=== PATIENT | male | born 1980 | race Asian ===

== ENCOUNTER 2020-07-30 09:52 | Outpatient (REF) | payer OTHER, SELFPAY ==
[2020-07-30 10:16] LABS: MANUAL DIFF FLAG NO
[2020-07-30 10:32] LABS: Basophils Percent Auto 0.4 % (0-2); Eosinophils Absolute Auto 0.2 X10*3/uL (0.0-0.4); Eosinophils Percent Auto 2.2 % (0-4); Hematocrit 42.3 % (42-52); Hemoglobin 12.7 g/dl (14.0-18.0); Imm Gran Abs Auto 0.03 X10*3/uL (0.00-0.03); Imm Gran Pct Auto 0.4 % (0.0-0.4); Lymphocytes Absolute Auto 3.6 X10*3/uL (1.2-4.9); Lymphocytes Percent Auto 52.2 % (20-40); Mean Corpuscular Hemoglobin 19.9 pg (27.0-33.0); Mean Corpuscular Volume 66.2 fL (80-98); Mean Platelet Volume 8.8 fL (9.4-12.4); Monocytes Absolute Auto 0.6 X10*3/uL (0.1-1.2); Monocytes Percent Auto 8.2 % (2-11); Neutrophils Absolute Auto 2.5 X10*3/uL (2.0-8.3); Neutrophils Percent Auto 36.6 % (45-73); Platelet Count 291 X10*3/uL (160-400); Red Blood Count 6.39 X10*6/uL (4.60-5.80); Red Cell Distribution Width 16.6 % (11.0-16.0); White Blood Count 6.8 X10*3/uL (4.8-10.8)
[2020-07-30 10:45] LABS: Alanine Aminotransferase 28 U/L (0-40); Albumin Level 4.8 g/dL (3.5-5.0); Alkaline Phosphatase 58 U/L (39-117); Anion Gap 12 (12-20); Aspartate Amino Transferase 20 U/L (5-37); Bilirubin Total 0.5 mg/dL (0.0-1.0); Blood Urea Nitrogen 14 mg/dL (9-16); Calcium 9.2 mg/dL (8.4-10.2); Carbon Dioxide 29 mmol/L (22-29); Chloride 104 mmol/L (96-108); Cholesterol 210 mg/dL; Estimated Glomerular Filt Rate > 60; Glucose Fasting 91 mg/dL (60-99); HDL Cholesterol 35 mg/dL; LDL Cholesterol Calculated 125 mg/dl; Potassium 4.8 mmol/l (3.3-5.1); Sodium 140 mmol/L (135-145); Triglycerides 253 mg/dL
== END 2020-07-30 09:53 | disposition home or self-care (01) ==
LOC: HO.LAB 09:52
PROVIDERS: PCP Internal Medicine Medical Oncology; Visit Provider Internal Medicine Medical Oncology
DX: K21.9 Gastro-esophageal reflux disease without esophagitis (principal); E78.2 Mixed hyperlipidemia; E66.9 Obesity, unspecified; D56.3 Thalassemia minor
CPT/HCPCS: 36415; 80053; 80061; 84443; 85025

== ENCOUNTER 2021-04-15 09:16 | Outpatient (REF) | payer OTHER, SELFPAY ==
[2021-04-15 09:36] LABS: MANUAL DIFF FLAG NO
[2021-04-15 09:41] LABS: Basophils Percent Auto 0.5 % (0-2); Eosinophils Absolute Auto 0.2 X10*3/uL (0.0-0.4); Eosinophils Percent Auto 3.5 % (0-4); Hematocrit 39.3 % (42-52); Hemoglobin 11.8 g/dl (14.0-18.0); Imm Gran Abs Auto 0.02 X10*3/uL (0.00-0.03); Imm Gran Pct Auto 0.3 % (0.0-0.4); Lymphocytes Absolute Auto 3.5 X10*3/uL (1.2-4.9); Lymphocytes Percent Auto 53.1 % (20-40); Mean Corpuscular Hemoglobin 19.8 pg (27.0-33.0); Mean Corpuscular Volume 66.1 fL (80-98); Mean Platelet Volume 9.1 fL (9.4-12.4); Monocytes Absolute Auto 0.5 X10*3/uL (0.1-1.2); Monocytes Percent Auto 7.8 % (2-11); Neutrophils Absolute Auto 2.3 X10*3/uL (2.0-8.3); Neutrophils Percent Auto 34.8 % (45-73); Platelet Count 281 X10*3/uL (160-400); Red Blood Count 5.95 X10*6/uL (4.60-5.80); Red Cell Distribution Width 16.1 % (11.0-16.0); White Blood Count 6.5 X10*3/uL (4.8-10.8)
[2021-04-15 10:03] LABS: Alanine Aminotransferase 20 U/L (0-40); Albumin Level 4.6 g/dL (3.5-5.0); Alkaline Phosphatase 58 U/L (39-117); Anion Gap 11 (12-20); Aspartate Amino Transferase 16 U/L (5-37); Bilirubin Total 0.4 mg/dL (0.0-1.0); Blood Urea Nitrogen 12 mg/dL (9-16); Calcium 9.3 mg/dL (8.4-10.2); Carbon Dioxide 25 mmol/L (22-29); Chloride 109 mmol/L (96-108); Cholesterol 193 mg/dL; Estimated Glomerular Filt Rate > 60; Glucose Fasting 97 mg/dL (60-99); HDL Cholesterol 31 mg/dL; LDL Cholesterol Calculated 118 mg/dl; Potassium 4.4 mmol/L (3.3-5.1); Sodium 141 mmol/L (135-145); Total Protein 7.6 g/dL (6.5-8.0); Triglycerides 220 mg/dL
[2021-04-15 10:24] LABS: Thyroid Stimulating Hormone 1.03 uIU/mL (0.32-4.0)
== END 2021-04-15 09:17 | disposition home or self-care (01) ==
LOC: HO.LAB 09:16
PROVIDERS: PCP Internal Medicine Medical Oncology; Visit Provider Internal Medicine Medical Oncology
DX: K21.9 Gastro-esophageal reflux disease without esophagitis (principal); E78.2 Mixed hyperlipidemia; E66.9 Obesity, unspecified; D56.3 Thalassemia minor
CPT/HCPCS: 36415; 80053; 80061; 84443; 85025

== ENCOUNTER 2022-02-04 20:48 | Emergency (ER) | payer OTHER, SELFPAY ==
--- NOTE | ~2022-02-04 | US_ITS ---
EXAMINATION: US SCROTUM CLINICAL INFORMATION: Right testicular pain, evaluate for epididymitis/varicocele. COMPARISON: None TECHNIQUE: A sonogram of the scrotum was performed assessing oh-scale appearance and color Doppler flow. Spectral Doppler analysis of the arterial and venous flow were performed in the testes bilaterally. FINDINGS: RIGHT: Right testicle measures 4.9 x 2.8 x 2.7 cm, volume 19 mL. Microlithiasis. No other focal testicular parenchymal lesions are visualized. Spectral Doppler analysis of the arterial and venous flow is normal in the right testis. Right epididymal head is normal in size. There are simple subcentimeter epididymal head cysts, largest measuring up to 0.3 cm in size. No right hydrocele or varicocele is seen. Right epididymal Doppler flow is normal. LEFT: Left testicle measures 4.7 x 2.2 x 3.3 cm, volume 18 mL. Microlithiasis. No other focal testicular parenchymal lesions are visualized. Spectral Doppler analysis of the arterial and venous flow is normal in the left testis. Left epididymal head is normal in size. No left hydrocele or varicocele is seen. Left epididymal Doppler flow is US/US scrotum IMPRESSION: Bilateral microlithiasis, recommend surveillance following clinical guidelines. No sonographic evidence of acute epididymitis. No evidence of testicular torsion at the moment of this examination. Simple appearing subcentimeter right-sided epididymal head cysts.
[2022-02-04 21:18] VITALS: BP 119/78; PULSE 80; RESP 18; TEMP 37.2; O2SAT 99; BMI 28.9
--- NOTE | 2022-02-04 22:57 | ED_ITS ---
HPI - Male Genitourinary General Chief complaint: Abdominal Pain Stated complaint: right sided pain Time Seen by Provider: 02/04/22 22:07 Source: patient Mode of arrival: ambulatory Limitations: no limitations History of Present Illness HPI Narrative: Patient complaining of right groin right testicle pain for last 10 days after lifting a couch pain gets worse on standing no lump or swelling. No nausea vomiting no penile discharge no UTI symptoms Related Data Allergies Allergy/AdvReac Type Severity Reaction Status Date / Time No Known Allergies Allergy Unverified 05/05/20 17:44 Review of Systems Review of Systems: Yes all other systems are reviewed and are negative [facility] Social History Social History Advance Directives: No Advance Directives Information Provided: Yes Physical Exam Vital Signs: Vital Signs: Last Vital Signs Temp 98.7 F 02/04/22 23:46 Pulse 75 02/04/22 23:46 Resp 18 02/04/22 23:46 BP 122/76 02/04/22 23:46 Pulse Ox 98 02/04/22 23:46 O2 Del Method 02/04/22 23:46 BMI result Body Mass Index 28.9 Appearance: Alert. Oriented X3. No acute distress. Neck: Normal inspection. Neck supple. CVS: Normal heart rate and rhythm. Pulses normal. Respiratory: No respiratory distress. Equal air entry bilateral, Abdomen: Soft and nontender. Bowel sounds are present, no mass palpable, no CVA tenderness Skin: Skin warm and dry. Normal skin color. Normal skin turgor. Extremities: No lower extremity edema. No calf tenderness Neuro: Oriented X 3. : Male General Exam: No hernia and No inguinal lymphadenopathy Penis: nor mal penis Scrotum: scrotum normal Testes: Testes normal and testicular lie normal Male genitals images: 1. Mild Tenderness in right epididymis without significant swelling MDM - Male Genitourinary MDM Narrative Medical decision making narrative: Ultrasound showed small right epididymal cyst will discharge patient home Discharge Plan Discharge Clinical Impression: Pain in right testicle Patient Disposition: Home, Self-Care Instructions: Scrotal Pain (ED) Additional Instructions: Your small cyst of right epididymal Tylenol/Motrin for pain Interventions: ED Discharge Assessment Last Done: 02/04/22 23:46 Discharge Date/Time: 02/04/22 23:47
[2022-02-04 23:46] VITALS: BP 122/76; PULSE 75; RESP 18; TEMP 37.1; O2SAT 98
== END 2022-02-04 23:47 | disposition home or self-care (01) ==
PROVIDERS: Emergency Provider Internal Medicine; PCP Internal Medicine Medical Oncology
DX: N50.811 Right testicular pain (principal); R10.31 Right lower quadrant pain; R10.814 Left lower quadrant abdominal tenderness
CPT/HCPCS: 76870; 99282; 99284

== ENCOUNTER 2022-04-28 07:53 | Outpatient (REF) | payer OTHER, SELFPAY ==
[2022-04-28 08:15] LABS: MANUAL DIFF FLAG NO
[2022-04-28 08:46] LABS: Hematocrit 39.7 % (42.0-52.0); Hemoglobin 12.2 g/dl (14.0-18.0); Red Blood Count 6.05 X10*6/uL (4.60-5.80); White Blood Count 6.5 X10*3/uL (4.8-10.8)
[2022-04-28 08:47] LABS: Basophils Percent Auto 0.6 % (0-2); Eosinophils Absolute Auto 0.2 X10*3/uL (0.0-0.4); Eosinophils Percent Auto 3.1 % (0-4); Imm Gran Abs Auto 0.01 X10*3/uL (0.00-0.03); Imm Gran Pct Auto 0.2 % (0.0-0.4); Lymphocytes Absolute Auto 3.1 X10*3/uL (1.2-4.9); Lymphocytes Percent Auto 47.3 % (20-40); Mean Corpuscular HGB Conc 30.7 g/dl (31.0-36.0); Mean Corpuscular Hemoglobin 20.2 pg (27.0-33.0); Mean Corpuscular Volume 65.6 fL (80.0-98.0); Mean Platelet Volume 8.8 fL (9.4-12.4); Monocytes Absolute Auto 0.6 X10*3/uL (0.1-1.2); Monocytes Percent Auto 9.5 % (2-11); Neutrophils Absolute Auto 2.5 x10*3/uL (2.0-8.3); Neutrophils Percent Auto 39.3 % (45-73); Platelet Count 278 X10*3/uL (160-400); Red Cell Distribution Width 16.6 % (11.0-16.0)
[2022-04-28 09:14] LABS: Alanine Aminotransferase 20 U/L (0-40); Albumin Level 4.6 g/dL (3.5-5.0); Alkaline Phosphatase 58 U/L (39-117); Anion Gap 14 (12-20); Aspartate Amino Transferase 17 U/L (5-37); Bilirubin Total 0.4 mg/dL (0.0-1.0); Blood Urea Nitrogen 15 mg/dL (9-16); Calcium 9.3 mg/dL (8.4-10.2); Carbon Dioxide 26 mmol/L (22-29); Chloride 105 mmol/L (96-108); Cholesterol 184 mg/dL; Estimated Glomerular Filt Rate > 60; Glucose Fasting 96 mg/dL (60-99); HDL Cholesterol 31 mg/dL; LDL Cholesterol Calculated 112 mg/dl; Potassium 4.5 mmol/L (3.3-5.1); Sodium 140 mmol/L (135-145); Total Protein 7.8 g/dL (6.5-8.0); Triglycerides 208 mg/dL
[2022-04-28 09:36] LABS: Prostate Specific Antigen 0.25 ng/mL (<0.05-4.0)
== END 2022-04-28 07:54 | disposition home or self-care (01) ==
LOC: HO.LAB 07:53
PROVIDERS: PCP Internal Medicine Medical Oncology; Visit Provider Internal Medicine Medical Oncology
DX: Z12.5 Encounter for screening for malignant neoplasm of prostate (principal); E78.2 Mixed hyperlipidemia; E66.3 Overweight; N40.0 Benign prostatic hyperplasia without lower urinary tract symptoms
CPT/HCPCS: 36415; 80053; 80061; 84153; 85025

== ENCOUNTER 2022-05-11 10:28 | Outpatient (REF) | payer OTHER, SELFPAY ==
--- NOTE | ~2022-05-11 | US_ITS ---
EXAMINATION: US RETROPERITONEAL COMPLETE (RENAL) CLINICAL INFORMATION: Abdominal pain. COMPARISON: None TECHNIQUE: Real-time imaging of the kidneys and bladder. FINDINGS: RIGHT KIDNEY: 11.9 x 4.9 x 6.4 cm (SAG x AP x TRV). The kidney is normal in size, contour, and echogenicity. Renal cortical thickness is normal. No calculi or focal parenchymal lesions. No hydronephrosis. LEFT KIDNEY: 12.0 x 6.4 x 6.1 cm (SAG x AP x TRV). The kidney is normal in size, contour, and echogenicity. Renal cortical thickness is normal. No renal calculi or focal parenchymal lesions. Trace hydronephrosis. BLADDER: Well distended and normal. Bilateral ureteral jets are demonstrated. Prevoid bladder volume is 203 mL. Postvoid bladder volume is 18 mL. The prostate gland measures 3.7 x 4.1 x 3.2 cm, 26 mL. US/US retroperitoneal comp IMPRESSION: Trace left-sided hydronephrosis, uncertain etiology. No nephrolithiasis. Borderline prostatomegaly with small amount of post void residual bladder volume.
== END 2022-05-11 10:29 | disposition home or self-care (01) ==
LOC: HO.HMGCX 10:28
PROVIDERS: Visit Provider Internal Medicine Medical Oncology
DX: R10.9 Unspecified abdominal pain (principal); N50.819 Testicular pain, unspecified
CPT/HCPCS: 76770

== ENCOUNTER → 2022-07-17 15:28 | Outpatient (BNVA) | payer OTHER, SELFPAY | PROVIDERS: PCP Internal Medicine Medical Oncology; Visit Provider Urology | DX: R10.31 Right lower quadrant pain (principal) | CPT/HCPCS: 99202 ==

== ENCOUNTER 2023-01-31 07:16 | Emergency (ER) | payer OTHER, SELFPAY ==
--- NOTE | ~2023-01-31 | CT_ITS ---
EXAMINATION: NONCONTRAST HEAD CT NONCONTRAST MAXILLOFACIAL CT INDICATION INFORMATION: Fall COMPARISON: None TECHNIQUE: Separate noncontrast CT examinations of the head and maxillofacial bones were performed. Coronal and sagittal images were created for each examination at the technologist workstation. This CT examination was performed using dose optimization techniques as appropriate, variously including the following: *Automated exposure control *Adjustment of mA and/or kV according to patient size (this includes techniques or standardized protocols for targeted exams where dose is matched to indication/reason for exam; i.e. extremities or head) *Use of iterative reconstruction technique DLP: 984 mGy-cm FINDINGS: Head: There is no evidence of acute intracranial hemorrhage or territorial infarction. No abnormal mass effect or midline shift is seen. Thompson to white matter differentiation is well preserved. No extra-axial fluid collections are identified. No hydrocephalus. No significant volume loss. There is no abnormal attenuation within the brain parenchyma. No acute soft tissue abnormality. No calvarial fracture. The mastoid air cells are well aerated. Maxillofacial: No acute maxillofacial fractures are seen. The pterygoid plates are intact. The lamina papyracea are intact. The zygomatic arches are intact. The nasal bone is intact. The orbital rims are intact. The mandible is intact. Mucous retention cysts in both maxillary sinuses. Partially opacified left ethmoid air cells. The uncinate process is normal bilaterally. The infundibula and middle meati are patent. The nasal septum deviates to the right. The mandibular heads are well-seated in the condylar fossa. The orbits demonstrate a normal appearance bilaterally. The globes are intact, and there are no suspicious findings to suggest retrobulbar hemorrhage. CT/CT facial bones wo IV con IMPRESSION: 1. No acute intracranial finding. 2. No acute maxillofacial fracture.
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
[2023-01-31 07:38] VITALS: BP 132/96; PULSE 93; RESP 16; TEMP 36.9; O2SAT 97; BMI 29.4
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
[2023-01-31 07:43] VITALS: BP 132/96; PULSE 93; RESP 16; O2SAT 98
[2023-01-31 09:14] VITALS: BP 126/87; PULSE 82; RESP 16; TEMP 37; O2SAT 98
[2023-01-31] MEDS: Tetracaine HCl/PF 0.5% Oph Sol 4 ML DROPS 1 DROP EYE-LEFT (09:17)
[2023-01-31] MEDS: Fluorescein Sodium STRIP 1 STRIP EYE-LEFT (09:17)
== END 2023-01-31 09:32 | disposition home or self-care (01) ==
PROVIDERS: Emergency Provider Emergency Medicine; PCP Internal Medicine Medical Oncology
DX: S05.02XA Injury of conjunctiva and corneal abrasion without foreign body, left eye, initial encounter (principal); S53.402A Unspecified sprain of left elbow, initial encounter; H11.32 Conjunctival hemorrhage, left eye; M25.522 Pain in left elbow; R51.9 Headache, unspecified; Y09 Assault by unspecified means; Y93.9 Activity, unspecified; Y92.9 Unspecified place or not applicable; Y99.9 Unspecified external cause status
CPT/HCPCS: 70450; 70486; 73080; 99284

== ENCOUNTER 2023-12-14 08:08 | Outpatient (REF) | payer OTHER, SELFPAY ==
[2023-12-14 08:29] LABS: MANUAL DIFF FLAG NO
[2023-12-14 08:33] LABS: Basophils Absolute Auto 0.1 X10*3/uL (0.0-0.2); Basophils Percent Auto 0.9 % (0-2); Eosinophils Absolute Auto 0.2 X10*3/uL (0.0-0.4); Eosinophils Percent Auto 2.8 % (0-4); Hematocrit 39.4 % (42.0-52.0); Imm Gran Abs Auto 0.02 X10*3/uL (0.00-0.03); Imm Gran Pct Auto 0.3 % (0.0-0.4); Lymphocytes Absolute Auto 2.7 X10*3/uL (1.2-4.9); Lymphocytes Percent Auto 46.6 % (20-40); Mean Corpuscular HGB Conc 30.5 g/dl (31.0-36.0); Mean Corpuscular Volume 65.8 fL (80.0-98.0); Mean Platelet Volume 8.9 fL (9.4-12.4); Monocytes Absolute Auto 0.5 X10*3/uL (0.1-1.2); Monocytes Percent Auto 8.8 % (2-11); Neutrophils Absolute Auto 2.4 x10*3/uL (2.0-8.3); Neutrophils Percent Auto 40.6 % (45-73); Platelet Count 291 X10*3/uL (160-400); Red Blood Count 5.99 X10*6/uL (4.60-5.80); Red Cell Distribution Width 16.8 % (11.0-16.0); White Blood Count 5.8 X10*3/uL (4.8-10.8)
[2023-12-14 08:53] LABS: Estimated Average Glucose 126 mg/dL
[2023-12-14 09:21] LABS: Alanine Aminotransferase 16 U/L (0-40); Albumin Level 4.5 g/dL (3.5-5.0); Alkaline Phosphatase 51 U/L (39-117); Anion Gap 10 (12-20); Aspartate Amino Transferase 14 U/L (5-37); Bilirubin Total 0.5 mg/dL (0.0-1.0); Blood Urea Nitrogen 11 mg/dL (9-16); Calcium 9.7 mg/dL (8.4-10.2); Carbon Dioxide 29 mmol/L (22-29); Chloride 106 mmol/L (96-108); Cholesterol 194 mg/dL (<200); Estimated Glomerular Filt Rate > 60; Glucose Fasting 91 mg/dL (60-99); HDL Cholesterol 33 mg/dL (>40); LDL Cholesterol Calculated 124 mg/dL (<100); Potassium 4.2 mmol/L (3.3-5.1); Sodium 141 mmol/L (135-145); Total Protein 7.9 g/dL (6.5-8.0); Triglycerides 185 mg/dL (<150)
[2023-12-14 09:39] LABS: Ferritin 109 ng/mL (20-250)
== END 2023-12-14 08:09 | disposition home or self-care (01) ==
LOC: HO.LAB 08:08
PROVIDERS: PCP Internal Medicine Medical Oncology; Visit Provider Internal Medicine Medical Oncology
DX: Z00.00 Encounter for general adult medical examination without abnormal findings (principal); E78.2 Mixed hyperlipidemia; E66.3 Overweight; N40.0 Benign prostatic hyperplasia without lower urinary tract symptoms
CPT/HCPCS: 36415; 80053; 80061; 82728; 83036; 85025